=== PATIENT | female | born 2000 | race Hispanic/Latino ===

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

== ENCOUNTER 2023-01-27 05:04 | Inpatient (IN) | payer MEDICAID ==
[~2023-01-27] VITALS: Ht 160 cm; Wt 90.3 kg
[~2023-01-27 05:04] MED LIST: FERR-82 PO; PREN1TAB80 PO
[2023-01-27] MEDS ORDERED: LACTATED RINGERS 1000ML 1,000 ML IV PRN (14:00)
[2023-01-27] MEDS ORDERED: OXYTOCIN-LR 30 UNITS/500ML 500 ML IV ONE ×2 (14:00→20:20)
[2023-01-27 14:53] LABS: HEMATOCRIT 27.7 % (36-48); MEAN CORPUSCULAR HEMOGLOBIN 24.9 pg (27.0-33.0); MEAN CORPUSCULAR HGB CONC 30.7 g/dL (32.0-36.0); PLATELET COUNT (AUTO) 177 K/uL (130-400); RED BLOOD CELL COUNT(AUTO) 3.42 MIL/uL (4.00-5.50); RED CELL DISTRIBUTION WIDTH 15.5 % (11.0-15.5); WHITE BLOOD COUNT (AUTO) 7.8 K/uL (4.8-10.8)
[2023-01-27] MEDS ORDERED: LIDOCAINE HCL 1% 20 ML VIAL ONE (15:35)
[2023-01-27] MEDS ORDERED: FENTANYL CITRATE PF 50 MCG/1 ML 2ML VIAL ONE (16:07)
[2023-01-27] MEDS ORDERED: LACTATED RINGERS 500 ML 500 ML IV PRN (16:30)
[2023-01-27] MEDS ORDERED: NALOXONE HCL 0.4 MG/1 ML ML IV PRN (16:30)
[2023-01-27] MEDS ORDERED: EPHEDRINE SULFATE 50 MG/ML AMPULE IVP PRN (16:30)
[2023-01-27] MEDS ORDERED: LANOLIN 30GM OINTMENT TP PRN (18:00)
[2023-01-27] MEDS ORDERED: MEASLES/MUMPS/RUBELLA VACCINE, LIVE 0.5 ML/VIAL SQ PRN (18:00)
[2023-01-27] MEDS ORDERED: DIPH,PERTUSS(ACELL),TET VAC/PF 0.5 ML VIAL IM PRN (18:00)
[2023-01-27] MEDS ORDERED: BENZOCAINE/LANOLIN/ALOE VERA 60 ML AEROSOL TP PRN (18:00)
[2023-01-27] MEDS ORDERED: IBUPROFEN 600 MG TABLET PO PRN (18:00)
[2023-01-27] MEDS ORDERED: ACETAMINOPHEN 325 MG TAB PO PRN (18:00)
[2023-01-27] MEDS ORDERED: WITCH HAZEL 1 PAD TP PRN (18:00)
[2023-01-27] MEDS ORDERED: ACETAMINOPHEN WITH CODEINE 1 TAB TAB PO PRN (18:00)
[2023-01-27] MEDS: DOCUSATE SODIUM 100 MG CAP PO SCH (20:21)
[2023-01-27 21:56] VITALS: BP 107/62; PULSE 74; RESP 18
[2023-01-27 23:10] VITALS: BP 107/63; PULSE 72; RESP 18
[2023-01-28 03:23] VITALS: BP 105/67; PULSE 69; RESP 18
[2023-01-28 05:54] LABS: HEMATOCRIT 26.7 % (36-48); MEAN CORPUSCULAR HEMOGLOBIN 24.5 pg (27.0-33.0); MEAN CORPUSCULAR HGB CONC 30.3 g/dL (32.0-36.0); MEAN CORPUSCULAR VOLUME 80.7 fL (79-99); RED BLOOD CELL COUNT(AUTO) 3.31 MIL/uL (4.00-5.50); RED CELL DISTRIBUTION WIDTH 15.7 % (11.0-15.5); WHITE BLOOD COUNT (AUTO) 9.8 K/uL (4.8-10.8)
[2023-01-28 07:33] VITALS: BP 91/50; PULSE 64; RESP 20
[2023-01-28] MEDS: DOCUSATE SODIUM 100 MG CAP PO SCH (08:15)
[2023-01-28 11:18] VITALS: BP 109/62; PULSE 77; RESP 20
[2023-01-28 12:43] LABS: RAPID PLASMA REAGIN NONREACTIVE (NONREACTIVE)
[2023-01-28] MEDS ORDERED: IBUP-2070 PO (14:19)
[2023-01-28 16:09] VITALS: BP 95/59; PULSE 70; RESP 16
== END 2023-01-28 17:50 | disposition home or self-care (01) | DRG 560 ==
LOC: LDH 13:36 → WSH 21:45
PROVIDERS: ADMIT Obstetrics & Gynecology; ATTEND Obstetrics & Gynecology
PROC: 10E0XZZ Delivery of Products of Conception, External Approach (ICD-10-PCS; principal; 2023-01-27)
PROC: 0HQ9XZZ Repair Perineum Skin, External Approach (ICD-10-PCS; 2023-01-27)
PROC: 3E0S3BZ Introduction of Anesthetic Agent into Epidural Space, Percutaneous Approach (ICD-10-PCS; 2023-01-27)
PROC: 00HU33Z Insertion of Infusion Device into Spinal Canal, Percutaneous Approach (ICD-10-PCS; 2023-01-27)
DX: O70.0 First degree perineal laceration during delivery (principal); Z37.0 Single live birth; Z3A.39 39 weeks gestation of pregnancy
CPT/HCPCS: 36415; 85027; 86592; 86701; 86850; 86900; 86901; 87340; 87390; 90715; A4314; G0378; J3010; J3490; J7120